=== PATIENT | male | born 1935 | race Caucasian/White ===

== ENCOUNTER → 2018-02-26 | Outpatient (CLI) | payer MEDICARE, OTHER ==
[~2018-02-26] MED LIST: ASPIRIN81 M2 PO; GUANFACINE HCL2 MG PO; METFORMIN HCL500 MG PO; MOBIC15 MG PO; NORVASC10 MG PO; OMEPRAZOLE 20 M20 M1 PO; PERCOCET PO; UNICOMPLEX M TA1 TA1 PO; VITAMIN D2000 UNIT PO; XARELTO10 MG PO; ZANTAC 150MG T150 MG PO; ZOCOR20 MG PO
== END ==
LOC: M.MRI 12:50
DX: M17.12 Unilateral primary osteoarthritis, left knee (principal); M25.462 Effusion, left knee; Z96.652 Presence of left artificial knee joint

== ENCOUNTER 2018-03-23 06:31 | Inpatient (IN) | payer MEDICARE, OTHER ==
[2018-03-11 08:55] LABS: URINE BILIRUBIN NEGATIVE (Negative); URINE BLOOD NEGATIVE (Negative); URINE CLARITY CLEAR; URINE COLOR YELLOW; URINE GLUCOSE-RANDOM NEGATIVE (Negative); URINE KETONES NEGATIVE (Negative); URINE LEUKOCYTES-REFLEX NEGATIVE (Negative); URINE NITRITE-REFLEX NEGATIVE (Negative); URINE PROTEIN NEGATIVE (Negative); URINE SPECIFIC GRAVITY 1.015 (1.005-1.030); URINE UROBILINOGEN 0.2 E.U./dl (0.2-1.0)
[2018-03-11 08:55] LABS: HEMATOCRIT 47.9 % (42.0-52.0); HEMOGLOBIN 15.8 gm/dL (14.0-18.0); MCH 27.8 pg (26.0-34.0); MCV 84.4 fL (80.0-100.0); MPV 8.4 fl. (7.2-11.1); RBC 5.67 mil/uL (4.50-6.00); RDW-CV 15.5 % (10.5-14.5); WBC 9.6 thou/uL (4.0-11.0)
[2018-03-11 09:13] LABS: ALBUMIN 3.4 g/dL (3.4-5.0); CALCIUM 8.5 mg/dL (8.5-10.1); POTASSIUM 3.7 mmol/L (3.5-5.1); TOTAL BILIRUBIN 0.6 mg/dL (<0.1-1.0); TOTAL PROTEIN 6.9 g/dL (6.4-8.2)
[2018-03-11 09:28] LABS: PROTIME 9.9 Seconds (9.20-11.50)
--- NOTE | 2018-03-11 15:18 | EKG ---
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: : 1935 Requested By: Addi Lamb Order Number: [id number] Reading MD: Tyrone Richter Measurements Intervals [place] Rate: 63 P: 39 [place]: 172 QRS: -11 QRSD: 92 T: 25 QT: 440 QTc: 451 Interpretive Statements Sinus rhythm Multiple ventricular premature complexes No previous ECG available for comparison Electronically Signed On 03-11-2018 15:18:24 CDT by Tyrone Richter [email or web address] <ELECTRONICALLY SIGNED> By: Tyrone Richter MD, [facility] 03/11/18 1518 [id number] 6 Tyrone Richter MD, [facility] /EPI
[~2018-03-23] VITALS: Ht 172.7 cm; Wt 86.2 kg
[~2018-03-23 06:31] MED LIST changes: -PERCOCET PO; -XARELTO10 MG PO
[2018-03-23 10:02] VITALS: BP 146/93
[2018-03-23 13:41] VITALS: BP 137/72
--- NOTE | 2018-03-23 16:01 | NUR ---
PATIENT TRANSFERRED FROM PACU THIS AFTERNOON. LEFT KNEE REPLACMENT. HEMOVAC IN PLACE, MINIMAL DRAINAGE NOTED. DRESSING TO LEFT KNEE C/D/I, POLAR ANDREW IN PLACE. IVF INFUSING. ACCUCHECK. CAPNO IN PLACE, 02 SAT 95%. PATIENT UP TO BEDSIDE WITH ASSISTANCE, UTILIZED WALKER AND GAIT BELT. PATIENT VOIDED WITHOUT DIFFICULTY, CLEAR YELLOW URINE IN URINAL. FALL RISK PROTOCOL. CPM TO START THIS EVENING, EDUCATION GIVEN. ORIENTED TO CALL LIGHT. CALL LIGHT WITHIN REACH, WILL CONTINUE TO MONITOR.
[2018-03-23 16:46] VITALS: BP 161/101
[2018-03-23 18:15] VITALS: BP 150/93
[2018-03-23 20:00] VITALS: BP 140/84
[2018-03-24] VITALS: BP 146/87
[2018-03-24 03:52] LABS: HEMATOCRIT 43.6 % (42.0-52.0); HEMOGLOBIN 14.4 gm/dL (14.0-18.0)
[2018-03-24 04:15] VITALS: BP 139/99
--- NOTE | 2018-03-24 05:08 | NUR ---
ASSESSMENT COMPLETE. PT SLEPT THROUGH THE NIGHT. PRN PAIN MEDICATION GIVEN ONCE. PT IN CPM BEFORE HS. HEMOVAC IN PLACE. PT IS ON 2L PER NC WITH CAPNO IN PLACE. PT USES URINAL NEEDED. PT HAS IV FLUIDS INFUSING. IV CEFAZOLIN GIVEN SCHEDULED. PT IS FALL RISK, BED ALARM ON. SEE ASSESSMENT AND VITALS FOR OTHER DETAILS. CALL LIGHT WITHIN REACH, WILL CONTINUE PLAN OF CARE
[2018-03-24 08:10] VITALS: BP 137/84
--- NOTE | 2018-03-24 11:10 | NUR ---
OT WILL DEFER TO P.T. AT THIS TIME. PLEASE WRITE NEW ORDERS IF NEEDED.
--- NOTE | 2018-03-24 11:11 | NUR ---
I have reviewed the documentation by JORGE LUIS BOOTH from 03/24/18 and I concur with it. DREW CHRISTENSEN
--- NOTE | 2018-03-24 15:57 | NUR ---
PT.IN BED IN CPM. AT BEDSIDE. PT.ANSWERS QUESTIONS BUT NOT VERY FORTHCOMING. HE LIVES WITH HIS . SHE CAN ASSIST HIM AT DISCHARGE. HE HAS A WALKER HE BROUGHT WITH HIM TO HOSPITAL BUT DID NOT USE IT BEFORE SURGERY. THEY HAVE 7 STEPS TO GET INTO THEIR HOUSE. HE HAS DONE WELL IN THERAPY. DISCUSSED HIS CPM AND JIAN ANDREW. DISCUSSED XARELTO. HE IS PLANNING ON GOING TO OUTPT.THERAPY AT [facility] IN [place]. HAS APPT.FOR THURSDAY. HE SAID HE IS NORMAALLY ACTIVE AND [place] AT HOME.
[2018-03-24 16:21] VITALS: BP 142/95
--- NOTE | 2018-03-24 16:40 | NUR ---
PATIENT UP AND DRESSED AND IN CHAIR THIS AM PRIOR TO THERAPY. PRN HYDROCODONE AND OXY IR GIVEN FOR PAIN. IV SL AFTER ABX FINISHED. LEFT KNEE DRESSING REMAINS INTACT, POLAR ANDREW REMAINS IN PLACE. HEMOVAC DC'D THIS AM PER ORDERS. OK WITH DR. JANE AND DR. PIERRE FOR DISCHARGE. PATIENT STATED HE FELT LIKE HE SHOULD STAY ANOTHER NIGHT DUE TO SOME NAUSEA AFTER ACTIVITY. DR. PIERRE NOTIFIED. PATIENT UP WITH ASSISTANCE UTILZING GAIT BELT AND WALKER WITHOUT DIFFICULTY.
[2018-03-24 20:50] VITALS: BP 143/87
[2018-03-25 00:43] VITALS: BP 133/85
[2018-03-25 03:55] LABS: HEMATOCRIT 42.1 % (42.0-52.0); HEMOGLOBIN 14.3 gm/dL (14.0-18.0)
[2018-03-25 03:57] VITALS: BP 144/86
--- NOTE | 2018-03-25 06:34 | NUR ---
PATIENT SLEPT MOST OF THE NIGHT. PATIENT WAS GIVEN PAIN MEDICINE TWICE THIS SHIFT. PATIENT HAS DONE HIS CPM TWICE THIS SHIFT. PATIENT SHOULD BE GOING HOME TODAY. WILL CONTINUE TO MONITOR.
[2018-03-25 09:30] VITALS: BP 137/82
--- NOTE | 2018-03-25 10:33 | NUR ---
CM CALLED IN PRESCRIPTION FOR XARELTO, WRITTEN,TO PT.S [facility] IN [place] / RD. WILL CALL BACK IN ONE HR.TO CHECK ON COPAY.
[2018-03-25 11:57] VITALS: BP 137/82
[2018-03-25] MEDS ORDERED: PERCOCET PO (12:25)
[2018-03-25] MEDS ORDERED: XARELTO10 MG PO (12:26)
--- NOTE | 2018-03-25 13:12 | NUR ---
ASSUMED CARE OF PATIENT AFTER MORNING REPORT AT APPROX 0720. ALERT AND ORIENTED X4. ASSESSMENT COMPLETED AND CHARTED. VSS ON ROOM AIR. PATIENT HAD NO COMPLAINTS OF SOA. PAIN AND NAUSEA HAVE BEEN MANAGED WITH MEDICATIONS. PATIENT HAS BEEN WORKING WELL WITH THERAPY AND CLEARED FOR DISCHARGE. PATIENT DISCHARGED AT 1305, ALL PERSONAL BELONGINGS, PRESCRIPTIONS AND DISCHARGE INFORMATION SENT WITH PATIENT.
--- NOTE | 2018-03-25 14:37 | OP ---
[facility] [address] [place] [address] OPERATIVE REPORT Name: ANNIE KENNEDY Room: [address] IN .R.#: [id number] Admission: 03/23/18 Attend Phys: Jaclyn James Discharge: 03/25/18 Date of : 39 Report #: [id number] THIS REPORT FOR: //name// CC: Gilberto Pino DATE OF SERVICE: 03/23/2018 PREOPERATIVE DIAGNOSIS: Left knee osteoarthritis. POSTOPERATIVE DIAGNOSIS: Left knee osteoarthritis. PROCEDURE: Left total knee arthroplasty. SURGEON: Addi Lamb II, DO PRINT CONTROLLER: SHANTELLE Mark ANESTHESIA: General endotracheal. ESTIMATED BLOOD LOSS: 50 mL. ANTIBIOTICS: Ancef preoperatively. DRAINS: Medium Hemovac. COMPLICATIONS: None. CONDITION: Stable to recovery room. IMPLANTS: Listed in the operative record and progress note. BRIEF HISTORY: The patient was seen in the preoperative area. Preop H and P was performed. Site was marked, questions were answered. Risks and benefits were discussed with the patient in detail about the surgery. The patient wished to proceed and assumed all risks. DESCRIPTION OF PROCEDURE: The patient was taken to the operative suite and placed supine after appropriate anesthesia. A well-padded tourniquet was applied to the upper thigh, was inflated to 300 mmHg after gravity exsanguination. The operative knee was sterilely prepped and draped. Surgery began with my midline incision. This was carried down to subcutaneous tissues. A medial parapatellar arthrotomy was performed and carried down to bone. The patella was then everted and excess soft tissue removed from the femur. Femoral guide pin was then applied, checked with a drop bj for rotational alignment, [address] [address] OPERATIVE REPORT Name: ANNIE KENNEDY Room: [address] IN [facility].#: [id number] Admission: 03/23/18 Attend Phys: Jaclyn James Discharge: 03/25/18 Date of : 39 Report #: [id number] pinned in the appropriate position and appropriate cuts were made. A 4-in-1 cutting block was then applied, checked for rotational alignment, pinned in the appropriate position and appropriate cuts were made. The tibia was then exposed. Excess meniscus was removed. Retraction was placed on the lateral ligaments. The tibial cutting block was then applied, pinned in appropriate position and appropriate cuts were made after checking the drop bj for rotational alignment and slope. Tibial bone was removed. The tibial baseplate was then applied, checked for rotational alignment with a drop bj and pinned in appropriate position. Reamer was then applied and box cut was reamed. This was trialed with appropriate spacer, which showed excellent fit and fill and excellent stability of the knee through all range of motion. The patella was then reamed in appropriate fashion and sized to appropriate size. Three peg holes were drilled. It was then trialed and showed excellent flexion, extension, excellent tracking of the patella within the groove. These trials were removed. The tibia was punched in appropriate fashion. The bones were cleansed with Pulsavac irrigation. Cement was mixed and applied to the final implants. These were malleted in position and held the knee in extension and compressed to allow cement to cure. After it cured, excess was removed utilizing a [place] and osteotome. Wound was copiously irrigated and the final spacer was then malleted in position. Tourniquet was deflated. Hemostasis was obtained with electrocautery. Pain cocktail was injected. PRP gel was sprayed throughout the internal aspects of the knee. Medium Hemovac drain was applied. The capsule was then closed with #2 FiberWire and 1 Vicryl in [id number] fashion, skin was closed with 2-0 Vicryl and running 3-0 Monocryl. Dermabond and sterile dressing applied. Rich wrap and PolarCare applied. The patient transported to recovery room in stable condition. Counts were correct throughout the procedure. <ELECTRONICALLY SIGNED> By: Addi Lamb II, DO 03/25/18 1437 [id number] [id number] Lamb II, DO /nt
== END 2018-03-25 13:05 | disposition home or self-care (01) | DRG 470 ==
LOC: M.PRE → M.TBA 08:14 → M.ORTHSURG 08:14 → M.PRE 10:33 → M.ORTHSURG 13:35
PROVIDERS: Orthopaedic Surgery; ADMIT Internal Medicine
PROC: 0SRD0J9 Replacement of Left Knee Joint with Synthetic Substitute, Cemented, Open Approach (ICD-10-PCS; principal; 2018-03-23)
DX: M17.12 Unilateral primary osteoarthritis, left knee (principal); I10 Essential (primary) hypertension; E11.9 Type 2 diabetes mellitus without complications; K21.9 Gastro-esophageal reflux disease without esophagitis; E78.00 Pure hypercholesterolemia, unspecified; Z80.0 Family history of malignant neoplasm of digestive organs; Z79.899 Other long term (current) drug therapy